=== PATIENT | female | born 1965 | race Caucasian/White ===

== ENCOUNTER 2017-10-03 12:16 | Emergency (ER) | payer OTHER ==
--- NOTE | 2017-10-03 14:33 | ED ---
Abdominal Pain/Female - HPI Summary HPI Summary: The pt is a 52 y/o female presenting to the [facility] c/o melena since 4 weeks ago. She has been seeing a GI specialist but has not had a colonoscopy.She reports cramping pain that radiates from her back (between her shoulder blades) to her abdomen. She also notes severe abd pain and flatulence after eating, and occasional nausea and constipation. The pt has a PMHx of hemorroids and bladder CA diagnosed 28 years ago. Pt denies being on blood thinners. This is scribhalley Campoverde documenting for attending Dr. Aleksandr MD - History of Current Complaint Chief Complaint: EDAbdPain Stated Complaint: BLOOD IN STOOL/ABD PAIN/FLANK PAIN Time Seen by Provider: 10/03/17 14:21 Hx Obtained From: Patient Onset/Duration: Lasting Weeks - 4 weeks Timing: Constant Severity Initially: Moderate Severity Currently: Moderate Pain Intensity: 7 Pain Scale Used: 0-10 Numeric Location: Other - Back (between the shoulder blades) Radiates: Yes Radiates to: Other - back pain (between the shoulder blades) radiates around to the epigastric area Character: Cramping Aggravating Factor(s): Food Alleviating Factor(s): Nothing Associated Signs and Symptoms: Positive: Back Pain, Blood in Stool, Nausea, Other: - Positive: Diffuse Abd pain, flatulence and constipation Allergies/Adverse Reactions: Allergies Allergy/AdvReac Type Severity Reaction Status Date / Time No Known Allergies Allergy Verified 10/03/17 12:23 Home Medications: Home Medications Atorvastatin* [Lipitor*] 40 mg PO DAILY 10/03/17 [History Confirmed 10/03/17] LORazepam TAB(*) [Ativan 1 MG TAB (*)] 1 mg PO BID MDD 2 mg 10/03/17 [History Confirmed 10/03/17] Lisinopril [Lisinopril 30 MG-] 30 mg PO DAILY 10/03/17 [History Confirmed ] Meloxicam(NF) [Mobic(NF)] 7.5 - 15 mg PO DAILY PRN 10/03/17 [History Confirmed 10/03/17] lamoTRIgine TAB(*) [LaMICtal TAB(*)] 150 mg PO BEDTIME 10/03/17 [History Confirmed 10/03/17] PMH/Surg Hx/FS Hx/Imm Hx Previously Healthy: No History: Reports: Other Problems/Disorders - bladder CA and hemorrhoids Musculoskeletal History: Denies: Hx Rheumatoid Arthritis, Hx Osteoporosis - Cancer History Cancer Type, Location and Year: Bladder Cancer- 1989: Detected during delivery Infectious Disease History: No Infectious Disease History: Denies: Traveled Outside the [place] in Last 30 Days - Family History Known Family History: Positive: Other Family History: CA- paternal and maternal. Diverticulitis-Maternal - Social History Occupation: Unemployed Lives: With Family Alcohol Use: None Hx Tobacco Use: Yes Smoking Status (MU): Smoker, Current Status Unknown Review of Systems - ROS Summary Review of Systems Summary: VITAL SIGNS: Reviewed. GENERAL: Patient is a well-developed and nourished female who is lying comfortable in the stretcher. Patient is not in any acute respiratory distress. HEAD AND FACE: Normocephalic and atraumatic. EYES: PERRLA, EOMI x 2, No injected conjunctiva. EARS: Hearing grossly intact. Ear canals and tympanic membranes are WNL. MOUTH: Oropharynx within normal limits. NECK: Supple, trachea is midline, no adenopathy, no JVD. CHEST: Symmetric, no tenderness at palpation LUNGS: Clear to auscultation bilaterally. No wheezing or crackles. CVS: RRR, S1 and S2 present, no murmurs or gallops appreciated. ABDOMEN: Soft, non-tender. No signs of distention. Positive bowel sounds. No rebound no guarding, and no masses palpated. No abdominal bruit or pulsations. EXTREMITIES: FROM in all major joints, no edema, no cyanosis or clubbing. NEURO: Alert and oriented x 3. No acute neurological deficits. Speech is normal. SKIN: Dry and warm GUGI: Performed rectal exam:One or more external hemorrhoid. No gross blood or melena.Normal sphincter tone Positive: Abdominal Pain, Nausea, Other - Positive: melena, flatulence, constipation Positive: Other - Back pain All Other Systems Reviewed And Are Negative: Yes Physical Exam - Summary Physical Exam Summary: VITAL SIGNS: Reviewed. GENERAL: Patient is a well-developed and nourished female who is lying comfortable in the stretcher. Patient is not in any acute respiratory distress. HEAD AND FACE: Normocephalic and atraumatic. EYES: PERRLA, EOMI x 2, No injected conjunctiva. EARS: Hearing grossly intact. Ear canals and tympanic membranes are WNL. MOUTH: Oropharynx within normal limits. NECK: Supple, trachea is midline, no adenopathy, no JVD. CHEST: Symmetric, no tenderness at palpation LUNGS: Clear to auscultation bilaterally. No wheezing or crackles. CVS: RRR, S1 and S2 present, no murmurs or gallops appreciated. ABDOMEN: Soft, non-tender. No signs of distention. Positive bowel sounds. No rebound no guarding, and no masses palpated. No abdominal bruit or pulsations. EXTREMITIES: FROM in all major joints, no edema, no cyanosis or clubbing. NEURO: Alert and oriented x 3. No acute neurological deficits. Speech is normal. SKIN: Dry and warm GUGI: Performed rectal exam. Female wealth management consultant present. One small external hemorrhoid. No gross blood or melena. Normal sphincter tone Triage Information Reviewed: Yes Vital Signs On Initial Exam: Initial Vitals Temp Pulse Resp BP Pulse Ox 98.3 F 100 16 160/93 98 10/03/17 12:20 10/03/17 12:20 10/03/17 12:20 10/03/17 12:20 10/03/17 12:20 Vital Signs Reviewed: Yes Diagnostics - Vital Signs Vital Signs Temp Pulse Resp BP Pulse Ox 10/03/17 12:20 98.3 F 100 16 160/93 98 - Laboratory Result Diagrams: 10/03/17 14:54 10/03/17 14:54 Lab Statement: Any lab studies that have been ordered have been reviewed, and results considered in the medical decision making process. - CT Abd/Pelvic CT CT Interpretation Completed By: Radiologist - IMPRESSION: NO ACUTE CT FINDINGS. SCANT DIVERTICULA WITHOUT CT FINDINGS OF ACUTE DIVERTICULITIS The ED physician has reviewed the radiology report. - EKG 14:59 Cardiac Rate: NL - 79 bpm EKG Rhythm: Sinus Rhythm EKG Interpretation: No ST elevations Abdominal Pain Fem Course/Dx - Course Course Of Treatment: This patient is a 52-year-old female who presents to the emergency department with chief complaint of having rectal bleeding and lower abdominal pain. Rectal exam revealed normal sphincter tone, no melena or gross blood. Blood test results without any significant abnormality, occult blood is negative. Abdominal and pelvic CT impression: No acute CT findings is scant and diverticula without CT findings for acute diverticulitis. And a because the patient was given IV fluids. The patient is feeling better. Had since there is no abnormal blood work or CT findings the patient will be discharged home with follow-up with primary care physician. She might benefit from a GI consult. I will let the primary care physician referred to the GI specialist. Patient was recommended to return to the emergency department if she develops more pain or any other symptoms. She understands and agrees. - Diagnoses Differential Diagnosis: Positive: Bowel Obstruction, Constipation, Diverticulitis, Renal Colic, Urinary Tract Infection, Other - Lower abdominal pain Provider Diagnoses: Lower abdominal pain Discharge - Sign-Out/Discharge Documenting (check all that apply): Patient Departure - DC - Discharge Plan Condition: Stable Disposition: HOME Patient Education Materials: Abdominal Pain (ED) Referrals: Leonard Briceno NP [Primary Care Provider] - 3 Days Additional Instructions: FOLLOW UP WITH YOUR PRIMARY CARE PROVIDER WITHIN ONE WEEK FOR HIGH BLOOD PRESSURE NOTED TODAY. RETURN TO THE ED FOR ANY WORSENING OR NEW SYMPTOMS. - Billing Disposition and Condition Condition: STABLE Disposition: Home
[2017-10-03 15:00] LABS: ABS Basophils 0.1 10^3/ul (0-0.2); ABS Eosinophils 0.1 10^3/ul (0-0.6); ABS Lymphocytes 3.7 10^3/ul (1.0-4.8); ABS Monocytes 0.8 10^3/ul (0-0.8); ABS Neutrophils 6.1 10^3/ul (1.5-7.7); ABS Nucleated RBC 0 10^3/ul; Eosinophil % 0.6 % (0-6); Hematocrit 39 % (35-47); Hemoglobin 13.4 g/dl (12.0-16.0); Lymphocyte % 34.8 % (25-47); Mean Corpuscular HGB Conc 35 g/dl (31-36); Mean Corpuscular Hemoglobin 33 pg (27-31); Mean Corpuscular Volume 94 fL (80-97); Mean Platelet Volume 7.3 um3 (7.4-10.4); Nucleated Red Blood Cells % 0.2; Platelet Count 251 10^3/ul (150-450); Red Blood Count 4.12 10^6/ul (4.00-5.40); Red Cell Distribution Width 14 % (10.5-15); White Blood Count 10.7 10^3/ul (3.5-10.8)
[2017-10-03 15:16] LABS: EGFR Non-African American 97.1 (>60)
[2017-10-03] MEDS ORDERED: Iohexol 300* (CONTRAST) 10 ML SDV IV ONE (15:25)
[2017-10-03 16:22] LABS: Urine Appearance Clear; Urine Blood Negative (Negative); Urine Color Yellow; Urine Ketones Negative (Negative); Urine Protein Negative (Negative); Urine Specific Gravity 1.013 (1.010-1.030); Urine Urobilinogen Negative (Negative)
--- NOTE | 2017-10-03 16:48 | RAD ---
INDICATION: Abdominal pain and bloating COMPARISON: None TECHNIQUE: Axial source images were obtained from the hemidiaphragms to the symphysis pubis following administration of oral and intravenous contrast. 72 mL Omnipaque 300 was utilized. Coronal and sagittal reconstructed images were acquired. Lung bases: The lung bases are clear. Liver: The liver is normal in size. There are no masses. There is no ductal dilatation. Gallbladder: There are no calcified gallstones. There is no evidence of wall thickening or pericholecystic fluid. Spleen: The spleen is normal in size. There are no masses. Pancreas: There is no focal pancreatic mass or ductal dilatation. Adrenal glands: There is no evidence of adrenal mass. Kidneys: The kidneys are normal in size and position. There are prompt nephrograms and there is prompt excretion bilaterally. There are no renal parenchymal masses. There is no evidence of nephrolithiasis. Adenopathy: There is no evidence of adenopathy by size criteria. Fluid collections: There are no free or localized fluid collections. Vessels:There are no significant atherosclerotic changes involving the aorta. There is no focal aneurysm. The iliac vessels are normal in caliber. The IVC appears normal. GI tract: There are no acute CT bowel findings. There is no obstruction. The stomach and small bowel appear normal. There are scant diverticula of the sigmoid colon. There is no CT evidence of acute diverticulitis. The appendix is visualized and appear normal. Pelvic organs: The uterus and adnexa appear normal Bladder: There are no bladder masses. Abdominal and pelvic soft tissues: The extraperitoneal abdominal and pelvic soft tissues appear normal.. Osseous structures: There are no acute osseous findings. Other: None IMPRESSION: NO ACUTE CT FINDINGS. SCANT DIVERTICULA WITHOUT CT FINDINGS OF ACUTE DIVERTICULITIS
[2017-10-03 18:18] VITALS: BP 128/97
== END 2017-10-03 18:18 | disposition home or self-care (01) ==
LOC: ED 12:16
DX: R10.30 Lower abdominal pain, unspecified (principal); K92.1 Melena; K57.90 Diverticulosis of intestine, part unspecified, without perforation or abscess without bleeding; K64.4 Residual hemorrhoidal skin tags; F17.200 Nicotine dependence, unspecified, uncomplicated; Z85.51 Personal history of malignant neoplasm of bladder
CPT/HCPCS: 36415; 74177; 80053; 81003; 82150; 82270; 83605; 83690; 83735; 83880; 85025; 86140; 93005; 99282; Q9967

== ENCOUNTER 2017-10-04 23:54 | Emergency (ER) | payer OTHER ==
[2017-10-05] MEDS ORDERED: Lidocaine 2% VISCOUS* 15 ML UDC PO ONE (00:51)
[2017-10-05] MEDS ORDERED: Al Hydrox/Mg Hydrox/Simet LIQ* 30 ML UDC PO ONE (00:52)
[2017-10-05] MEDS ORDERED: Dicyclomine CAP* 10 MG PO ONE (00:53)
--- NOTE | 2017-10-05 00:59 | ED ---
Abdominal Pain/Female - HPI Summary HPI Summary: Complains of intermittent diffuse abdominal pain and associated back pain 1 month. Pain is worse with eating, improved with nothing. Patient states 40 pounds of weight loss in the past 3 months. Has GI appointment in 2 weeks. Was seen here yesterday for same symptoms with full workup with CT ab/pel, all of which were unremarkable. Denies fever, cough, sore throat, CP, SOB, N/V/D, change in urine, vaginal symptoms, change in BM. Medical history is possible DM , PTSD, anxiety, depression. Abdominal/pelvic surgical history is BTL. - History of Current Complaint Chief Complaint: EDAbdPain Stated Complaint: ABD PAIN Time Seen by Provider: 10/05/17 00:04 Hx Obtained From: Patient Onset/Duration: Gradual Onset, Lasting Weeks Timing: Intermittent Episode Lasting Severity Initially: Mild Severity Currently: Severe Pain Intensity: 10 Pain Scale Used: 0-10 Numeric Location: Diffuse Radiates: Yes Radiates to: Back Character: Sharp, Dull, Colicy Aggravating Factor(s): Food Alleviating Factor(s): Position Associated Signs and Symptoms: Positive: Decreased Appetite Allergies/Adverse Reactions: Allergies Allergy/AdvReac Type Severity Reaction Status Date / Time No Known Allergies Allergy Verified 10/03/17 12:23 Home Medications: Home Medications [place]-3 Fatty Acids/Fish Oil [Fish Oil 1,000 mg Capsule] 1 each PO DAILY [History Confirmed 10/05/17] raNITIdine HCl [Ranitidine HCl] 150 mg PO DAILY 10/05/17 [History Confirmed 10/15] PMH/Surg Hx/FS Hx/Imm Hx Endocrine/Hematology History: Denies: Hx Anticoagulant Therapy, Hx Diabetes Cardiovascular History: Denies: Hx Cardiac Arrest, Hx Hypertension History: Reports: Other Problems/Disorders - bladder CA and hemorrhoids Denies: Hx Dialysis Musculoskeletal History: Denies: Hx Rheumatoid Arthritis, Hx Osteoporosis Neurological History: Denies: Hx CVA - Cancer History Cancer Type, Location and Year: Bladder Cancer- 1989: Detected during delivery - Surgical History Surgery Procedure, Year, and Place: TUBAL LIGATION, LUMBAR LAMINECTOMY, DISCECTOMY Infectious Disease History: No Infectious Disease History: Denies: Traveled Outside the [place] in Last 30 Days - Family History Known Family History: Positive: Other Family History: CA- paternal and maternal. Diverticulitis-Maternal - Social History Alcohol Use: None Substance Use Type: Reports: Marijuana Hx Tobacco Use: Yes Smoking Status (MU): Heavy Every Day Tobacco Smoker Review of Systems Constitutional: Negative Eyes: Negative ENT: Negative Cardiovascular: Negative Respiratory: Negative Positive: Abdominal Pain Genitourinary: Negative Musculoskeletal: Negative Skin: Negative Neurological: Negative Psychological: Normal All Other Systems Reviewed And Are Negative: Yes Physical Exam - Summary Physical Exam Summary: Diffusely tender in all quadrants of abdomen, worse suprapubically. Triage Information Reviewed: Yes Vital Signs On Initial Exam: Initial Vitals Pulse Resp BP Pulse Ox 99 26 182/143 100 10/05/17 00:01 10/05/17 00:01 10/05/17 00:01 10/05/17 00:01 Vital Signs Reviewed: Yes Appearance: Positive: Well-Appearing Skin: Positive: Warm Head/Face: Positive: Normal Head/Face Inspection Eyes: Positive: Normal Neck: Positive: Supple Respiratory/Lung Sounds: Positive: Clear to Auscultation Cardiovascular: Positive: Normal Abdomen Description: Positive: Other: Musculoskeletal: Positive: Normal Neurological: Positive: Normal Psychiatric: Positive: Normal AVPU Assessment: Alert - [place] Coma Scale Best Eye Response: 4 - Spontaneous Best Motor Response: 6 - Obeys Commands Best Verbal Response: 5 - Oriented Coma Scale Total: 15 Diagnostics - Vital Signs Vital Signs Temp Pulse Resp BP Pulse Ox 10/05/17 00:31 98 18 173/117 99 10/05/17 00:02 98.1 F 107 20 189/101 99 10/05/17 00:01 99 26 182/143 100 - Laboratory Result Diagrams: 10/05/17 01:26 10/05/17 01:26 Lab Statement: Any lab studies that have been ordered have been reviewed, and results considered in the medical decision making process. Abdominal Pain Fem Course/Dx - Course Course Of Treatment: Complains of intermittent diffuse abdominal pain and associated back pain 1 month. Pain is worse with eating, improved with nothing. Patient states 40 pounds of weight loss in the past 3 months. Has GI appointment in 2 weeks. Was seen here yesterday for same symptoms with full workup with CT ab/pel, all of which were unremarkable. Denies fever, cough, sore throat, CP, SOB, N/V/D, change in urine, vaginal symptoms, change in BM. Medical history is possible DM, PTSD, anxiety, depression. Abdominal/pelvic surgical history is BTL. Diffusely tender in all quadrants of abdomen, worse suprapubically. Symptoms completely resolved with GI cocktail. VS nml. White count elevated 12.9. No other SIRS criteria. Labs otherwise unremarkable. Abdominal x-ray suggestive of constipation. Recommend magnesium citrate. Patient's symptoms improved greatly with GI cocktail. Rx for same and Protonix. Follow-up with GI. - Diagnoses Provider Diagnoses: Abdominal pain Discharge - Sign-Out/Discharge Documenting (check all that apply): Patient Departure - Discharge Plan Condition: Stable Disposition: HOME Patient Education Materials: Gastritis (ED) Referrals: Leonard Briceno NP [Primary Care Provider] - Moy Howell MD [Medical Doctor] - Additional Instructions: Follow-up with GI Dr Howell. Return to the ED for any new or worsening symptoms - Billing Disposition and Condition Condition: STABLE Disposition: Home
[2017-10-05 01:44] LABS: ABS Basophils 0.1 10^3/ul (0-0.2); ABS Eosinophils 0 10^3/ul (0-0.6); ABS Lymphocytes 3.5 10^3/ul (1.0-4.8); ABS Neutrophils 8.3 10^3/ul (1.5-7.7); ABS Nucleated RBC 0 10^3/ul; Eosinophil % 0.3 % (0-6); Hematocrit 39 % (35-47); Hemoglobin 13.5 g/dl (12.0-16.0); Mean Corpuscular HGB Conc 34 g/dl (31-36); Mean Corpuscular Hemoglobin 32 pg (27-31); Mean Corpuscular Volume 94 fL (80-97); Mean Platelet Volume 7.4 um3 (7.4-10.4); Nucleated Red Blood Cells % 0.1; Platelet Count 250 10^3/ul (150-450); Red Blood Count 4.17 10^6/ul (4.00-5.40); Red Cell Distribution Width 14 % (10.5-15); White Blood Count 12.9 10^3/ul (3.5-10.8)
[2017-10-05 01:58] LABS: EGFR Non-African American 83.4 (>60)
[2017-10-05 03:05] VITALS: BP 154/96
--- NOTE | 2017-10-05 08:01 | RAD ---
INDICATION: Abdominal pain. COMPARISON: CT abdomen pelvis dated October 03, 2017 TECHNIQUE: Supine and upright views of the abdomen were obtained. FINDINGS: The small bowel and colon appear nondistended. No free intraperitoneal air is seen. No grossly abnormal or pathologic appearing calcifications are noted. Visualized bones are within normal limits for the patient's age. IMPRESSION: Normal abdominal radiograph. R1
== END 2017-10-05 03:04 | disposition home or self-care (01) ==
LOC: ED 23:54
DX: R10.84 Generalized abdominal pain (principal); R63.4 Abnormal weight loss; Z85.51 Personal history of malignant neoplasm of bladder; F17.200 Nicotine dependence, unspecified, uncomplicated
CPT/HCPCS: 36415; 74019; 80053; 83605; 83690; 85025; 86140; 99283; A9270-GY